=== PATIENT | male | born 1985 | race Caucasian/White ===

== ENCOUNTER 2024-09-12 09:19 | Outpatient (REF) | payer OTHER, SELFPAY ==
[2024-09-12 10:25] LABS: Estimated Average Glucose 108 mg/dL; Hemoglobin A1C 142.0089 umol/L; Hemoglobin A1c % 5.4 % (<6.0); Total Hemoglobin (HGBA1C) 3945.4091 umol/L
[2024-09-12 11:07] LABS: Prostate Specific Antigen 0.77 ng/mL (<0.05-4.0)
[2024-09-12 11:09] LABS: Alanine Aminotransferase 20 U/L (0-40); Albumin Level 4.7 g/dL (3.5-5.0); Anion Gap 11 (12-20); Aspartate Amino Transferase 10 U/L (5-37); Bilirubin Total 0.9 mg/dL (0.0-1.0); Blood Urea Nitrogen 11 mg/dL (9-16); Calcium 9.6 mg/dL (8.4-10.2); Carbon Dioxide 28 mmol/L (22-29); Chloride 107 mmol/L (96-108); Cholesterol 179 mg/dL (<200); Estimated Glomerular Filt Rate > 60; Glucose Random 92 mg/dL (60-115); HDL Cholesterol 59 mg/dL (>40); LDL Cholesterol Calculated 111 mg/dL (<100); Potassium 3.7 mmol/L (3.3-5.1); Sodium 142 mmol/L (135-145); Total Protein 7.6 g/dL (6.5-8.0); Triglycerides 47 mg/dL (<150)
[2024-09-12 11:18] LABS: Alkaline Phosphatase 42 U/L (39-117); Thyroid Stimulating Hormone 1.54 uIU/mL (0.32-4.0)
== END 2024-09-12 09:20 | disposition home or self-care (01) ==
LOC: HO.LAB 09:19
PROVIDERS: PCP Nurse Practitioner Family; Referring Provider Internal Medicine; Visit Provider Nurse Practitioner Family
DX: Z00.00 Encounter for general adult medical examination without abnormal findings (principal); Z12.5 Encounter for screening for malignant neoplasm of prostate; Z13.29 Encounter for screening for other suspected endocrine disorder; Z13.220 Encounter for screening for lipoid disorders; R73.01 Impaired fasting glucose; R35.0 Frequency of micturition; Z13.6 Encounter for screening for cardiovascular disorders
CPT/HCPCS: 36415; 80053; 80061; 83036; 84153; 84443

== ENCOUNTER 2024-12-17 12:52 | Outpatient (AMB) | payer OTHER, SELFPAY ==
--- NOTE | 2024-12-17 13:06 | MHC.OFFVIS ---
Intake Visit Reasons: urinary frequency/ weak urine stream Intake Note: New patient presents today for initial visit for urinary frequency/weak urine stream Urology Medication:None Blood Thinner:None Antibiotic Allergies:None PVR:81ml Allergies No Known Allergies Allergy (Verified 12/17/24 13:34) Medication List - Last Reconciled 12/17/24 by WALTER Shultz bupropion HCl XL 300 mg PO DAILY gabapentin 300 mg PO TID quetiapine mg PO HPI Comments Details: Emanuel is a very pleasant 39-year-old male patient of Dr. Dallas. He has a past medical history of enlarged thyroid, onychomycosis, and depression. He presents to the office today as a new patient for ongoing lower urinary tract symptoms he has been experiencing. In discussion with the patient today he reports noting over the last year to be having issues with incomplete bladder emptying as well as weak urinary stream. In office urinalysis results reviewed with the patient today. PVR 81 mL. We did discussed potential causes of these lower urinary tract symptoms he is experiencing as well as further treatment options and risks and benefits of these treatment options. When asked he denies incontinence, hematuria, dysuria, foul smelling urine, changes to urinary stream, flank pain, fever, and or chills. He does report occasional episodes of nocturia however relates this to his increased consumption of fluids prior to bed. He reports these episodes are infrequent and not bothersome. We discussed obtaining retroperitoneal ultrasound for further assessment evaluation as well as potential near future in office uroflow or cystoscopy for further assessment evaluation. In review of patient's chart it appears PSA 09/20 0.8. All questions were answered. He otherwise offers no other issues or concerns at this time. FORMERLY [facility], [facility] Medical History Hepatitis C antibody test negative Enlarged thyroid History of onychomycosis Depression Surgical History History of wisdom tooth extraction Review of Systems Const All systems reviewed & are unremarkable except as noted in HPI and below Physical Exam Const General: cooperative, healthy appearing, comfortable, no acute distress, well developed, alert and awake Orientation/consciousness: patient oriented x3 Limitations: no limitations HEENT Head: Yes normal to inspection, Yes normocephalic and Yes atraumatic Ears: hearing grossly normal bilaterally Eyes General: appearance normal, both eyes and all related structures Neck Neck: Yes normal visual inspection and Yes trachea midline Chest Chest palpation & inspection: normal inspection of the chest Resp Effort & Inspection: normal respiratory effort and able to speak in complete sentences Cardio Rate: regular rate GI Inspection: Yes normal to inspection General: Yes no CVA tenderness Back/Spine/Pelvis Back: no CVA tenderness Skin General skin exam: no rashes or lesions noted Neuro General: patient oriented x3 Extrem General: Yes normal to inspection Psych Appearance: grossly normal and well kempt Mental Status: mental status grossly normal Speech and movement: Normal speech and movement present and Clear speech present Affect: normal affect Attitude: cooperative Thought process: Normal thought process present Thought content: Normal thought content present Insight: Fair insight present (Psych) Judgement: Fair judgement present (Psych) Assessment & Plan Assessment & Plan (1) Incomplete bladder emptying: Code(s): R33.9 - Retention of urine, unspecified Category: Medical (2) Weak urinary stream: Code(s): R39.12 - Poor urinary stream Category: Medical Plan In office urinalysis results reviewed with the patient today; as noted above. PVR 81 mL. We did discussed potential causes of lower urinary tract symptoms patient is experiencing as well as further treatment options and risks and benefits of these treatment options. We did discussed attempting to sit when voiding to relax pelvis to assist with bladder emptying. We also discussed attempting to double void to assist with bladder emptying. Information provided regarding pelvic floor exercises. Will obtain retroperitoneal ultrasound for further assessment evaluation. We discussed potential near future uroflow and or cystoscopy for further assessment evaluation. Follow-up in 3 months with imaging and PVR; or sooner with any issues, concerns, and or questions. Orders: Orders US retroperitoneal comp Today R33.9 - Retention of urine, unspecified, R39.12 - Poor urinary stream Patient Instructions: The patient had an opportunity to ask questions regarding the treatment plan. All questions were answered. Physical exam, labs, and imaging were discussed and reviewed in detail. As well as risks, benefits, and discussion of treatment choices. No major barriers to understanding were identified. The patient expressed understanding and agreement with the above treatment plan. The patient was made aware they should contact our office by phone for worsening of their current condition, the appearance of new symptoms, or with any questions or concerns. Compliance is encouraged with any medications and follow up testing that is ordered. It is a privilege to be allowed the opportunity to participate in? your urological care.? Again, if you have any questions or concerns If you have any questions or concerns please do not hesitate to contact me. The office is [phone]. This note is constructed using voice recognition software. While every effort has been made to ensure accuracy shot blaster errors may have been included. Yours sincerely, WALTER Shultz Coding Level of Care Code New Pt Level 3 (66041) Diagnoses Incomplete bladder emptying R33.9 Weak urinary stream R39.12
== END 2024-12-17 13:31 | disposition home or self-care (01) ==
PROVIDERS: PCP Nurse Practitioner Family; Visit Provider Nurse Practitioner Family
DX: R33.9 Retention of urine, unspecified (principal); R39.12 Poor urinary stream; Z13.9 Encounter for screening, unspecified
CPT/HCPCS: 99203

== ENCOUNTER → 2024-12-17 12:52 | Outpatient (BNVA) | payer OTHER, SELFPAY | PROVIDERS: PCP Nurse Practitioner Family; Visit Provider Nurse Practitioner Family | DX: R39.12 Poor urinary stream (principal) | CPT/HCPCS: 51798; 81003 ==

== ENCOUNTER 2025-03-06 09:55 | Outpatient (REF) | payer OTHER, SELFPAY ==
--- NOTE | ~2025-03-06 | US_ITS ---
CLINICAL HISTORY: R33.9 - Retention of urine, unspecified US Renal Comparison: None provided Findings: Right kidney normal size and echotexture, 12.2 cm length. Left kidney normal size and echotexture, 11.9 cm length. No hydronephrosis of either kidney. Normal color Doppler. Urinary bladder is unremarkable. Prevoid volume 218 mL. Postvoid volume 39 mL. Bilateral ureteral jets are visualized. IMPRESSION: 1. Normal kidneys. This document has been electronically signed by: Doug Valles MD on 03/07/2025 08:58:03
== END 2025-03-06 09:56 | disposition home or self-care (01) ==
LOC: HO.US 09:55
PROVIDERS: PCP Nurse Practitioner Family; Visit Provider Nurse Practitioner Family
DX: R33.9 Retention of urine, unspecified (principal); R39.12 Poor urinary stream
CPT/HCPCS: 76770

== ENCOUNTER → 2025-03-06 09:58 | Outpatient (BNV) | payer OTHER, SELFPAY | PROVIDERS: PCP Nurse Practitioner Family; Visit Provider Specialist | DX: R33.9 Retention of urine, unspecified (principal) | CPT/HCPCS: 76770 ==

== ENCOUNTER 2025-03-24 12:43 | Outpatient (AMB) | payer OTHER, SELFPAY ==
--- NOTE | 2025-03-24 12:47 | MHC.OFFVIS ---
Intake Visit Reasons: /US Intake Note: Patient is present for / Urology Medication:NONE Antibiotic Allergy:NONE Blood Thinner:NONE Dirt Supervisor Required: No Allergies No Known Allergies Allergy (Verified 03/24/25 13:18) Medication List - Last Reconciled 03/24/25 by WALTER Shultz bupropion HCl XL 300 mg PO DAILY gabapentin 300 mg PO TID quetiapine mg PO HPI Comments Details: Emanuel is a very pleasant 39-year-old male patient of Dr. Dallas. He has a past medical history of enlarged thyroid, onychomycosis, and depression. He presents to the office today for follow-up. Of note, patient was seen approximately 3 months ago as a new patient for ongoing lower urinary tract symptoms he has been experiencing at which time a retroperitoneal ultrasound was ordered for further assessment evaluation. These results were reviewed and communicated with the patient today. 03/22 bilateral kidneys are normal in size and echotexture. No hydronephrosis noted bilaterally. The urinary bladder is unremarkable. Postvoid bladder volume 40 mL. Normal retroperitoneal ultrasound per radiology report. He reports he would like to continue with lifestyle modifications at this time. We did discussed potential causes of weak urinary stream and feeling of incomplete bladder emptying. When asked he denies hematuria, dysuria, foul smelling urine, changes to urinary stream, flank pain, fever, and or chills. He does report occasional episodes of nocturia however relates this to his increased consumption of fluids prior to bed. He reports these episodes are infrequent and not bothersome. We discussed potential near future in office uroflow or cystoscopy for further assessment evaluation. In review of patient's chart it appears PSA 09/20 0.8. All questions were answered. He otherwise offers no other issues or concerns at this time. [facility] Medical History Hepatitis C antibody test negative Enlarged thyroid History of onychomycosis Depression Surgical History History of wisdom tooth extraction Review of Systems Const All systems reviewed & are unremarkable except as noted in HPI and below Physical Exam Const General: cooperative, healthy appearing, comfortable, no acute distress, well developed, alert and awake Orientation/consciousness: patient oriented x3 Limitations: no limitations HEENT Head: Yes normal to inspection, Yes normocephalic and Yes atraumatic Ears: hearing grossly normal bilaterally Eyes General: appearance normal, both eyes and all related structures Neck Neck: Yes normal visual inspection and Yes trachea midline Chest Chest palpation & inspection: normal inspection of the chest Resp Effort & Inspection: normal respiratory effort and able to speak in complete sentences Cardio Rate: regular rate GI Inspection: Yes normal to inspection General: Yes no CVA tenderness Back/Spine/Pelvis Back: no CVA tenderness Skin General skin exam: no rashes or lesions noted Neuro General: patient oriented x3 Extrem General: Yes normal to inspection Psych Appearance: grossly normal and well kempt Mental Status: mental status grossly normal Speech and movement: Normal speech and movement present and Clear speech present Affect: normal affect Attitude: cooperative Thought process: Normal thought process present Thought content: Normal thought content present Insight: Fair insight present (Psych) Judgement: Fair judgement present (Psych) Results AMB Urinalysis, Automated UA Leukoctes 0 Karla/uL Last Edit by BRYAN Savage on 03/24/25 12:58 UA Nitrite Negative Last Edit by BRYAN Savage on 03/24/25 12:58 UA Urobilinogen 0.2 mg/dL Last Edit by BRYAN Savage on 03/24/25 12:58 UA Protein 15 mg/dL Last Edit by BRYAN Savage on 03/24/25 12:58 UA pH 6.0 Last Edit by BRYAN Savage on 03/24/25 12:58 UA Blood 0 Judd/uL Last Edit by BRYAN Savage on 03/24/25 12:58 UA Specific [place] 1.015 Last Edit by BRYAN Savage on 03/24/25 12:58 UA Ketone Negative Last Edit by BRYAN Savage on 03/24/25 12:58 UA Bilirubin 0 mg/dL Last Edit by BRYAN Savage on 03/24/25 12:58 UA Glucose 0 mg/dL Last Edit by BRYAN Savage on 03/24/25 12:58 Results Reviewed Results Reviewed: Laboratory Last Values Urine pH (Auto) 6.0 03/24/25 12:57 Specific [place] (Auto) 1.015 03/24/25 12:57 Urine Protein (Auto) 15 mg/dL 03/24/25 12:57 Glucose (UA)(Auto) 0 mg/dL 03/24/25 12:57 Urine Ketones (Auto) Negative 03/24/25 12:57 Urine Blood (Auto) 0 Judd/uL 03/24/25 12:57 Urine Nitrite (Auto) Negative 03/24/25 12:57 Urine Bilirubin (Auto) 0 mg/dL 03/24/25 12:57 Urine Urobilinogen (Auto) 0.2 mg/dL 03/24/25 12:57 Leukocyte Esterase (Auto) 0 Karla/uL 03/24/25 12:57 Date of Service: 03/06/25 Procedure(s): US retroperitoneal comp Findings: Right kidney normal size and echotexture, 12.2 cm length. Left kidney normal size and echotexture, 11.9 cm length. No hydronephrosis of either kidney. Normal color Doppler. Urinary bladder is unremarkable. Prevoid volume 218 mL. Postvoid volume 39 mL. Bilateral ureteral jets are visualized. IMPRESSION: 1. Normal kidneys. Assessment & Plan Assessment & Plan (1) Incomplete bladder emptying: Code(s): R33.9 - Retention of urine, unspecified Category: Medical (2) Weak urinary stream: Code(s): R39.12 - Poor urinary stream Category: Medical Plan In office urinalysis results reviewed with the patient today; as noted above. Recent retroperitoneal ultrasound results reviewed with the patient today; as noted above. Patient like to continue with lifestyle modifications with pelvic floor exercises We did discuss trial of alpha blockers. All questions were answered. We did discussed potential causes of lower urinary tract symptoms patient is experiencing as well as further treatment options and risks and benefits of these treatment options. We did discuss near future uroflow for further assessment evaluation. Follow-up in 3 months with PVR; or sooner with any issues, concerns, and or questions. Orders: Orders AMB Urinalysis Automated Today Z13.9 - Encounter for screening, unspecified Patient Instructions: The patient had an opportunity to ask questions regarding the treatment plan. All questions were answered. Physical exam, labs, and imaging were discussed and reviewed in detail. As well as risks, benefits, and discussion of treatment choices. No major barriers to understanding were identified. The patient expressed understanding and agreement with the above treatment plan. The patient was made aware they should contact our office by phone for worsening of their current condition, the appearance of new symptoms, or with any questions or concerns. Compliance is encouraged with any medications and follow up testing that is ordered. It is a privilege to be allowed the opportunity to participate in? your urological care.? Again, if you have any questions or concerns If you have any questions or concerns please do not hesitate to contact me. The office is [phone]. This note is constructed using voice recognition software. While every effort has been made to ensure accuracy long distance operator errors may have been included. Yours sincerely, WALTER Shultz Coding Level of Care Code Est Pt Level 3 (08278) Diagnoses Incomplete bladder emptying R33.9 Weak urinary stream R39.12
--- OUTSIDE RECORDS SUMMARY | 2025-03-24 16:09 | XMS_ITS ---
Author Name [facility] Organization Unknown Care Team Organization Name Specialty Phone Email Start Date End Da te [facility] NULL Primary Care 04/05/2022 01/15/2024
== END 2025-03-24 13:19 | disposition home or self-care (01) ==
LOC: HO.HUSH 12:44
PROVIDERS: PCP Nurse Practitioner Family; Visit Provider Nurse Practitioner Family
DX: R33.9 Retention of urine, unspecified (principal); R39.12 Poor urinary stream; Z13.9 Encounter for screening, unspecified
CPT/HCPCS: 99213

== ENCOUNTER → 2025-03-24 12:43 | Outpatient (BNVA) | payer OTHER, SELFPAY | PROVIDERS: PCP Nurse Practitioner Family; Visit Provider Nurse Practitioner Family | DX: R39.12 Poor urinary stream (principal) | CPT/HCPCS: 81003 ==